=== PATIENT | female | born 1980 | race Caucasian/White ===

== ENCOUNTER 2016-11-20 14:25 | Emergency (ER) | payer MEDICAID ==
[2016-11-20] MEDS ORDERED: CIPROFLOXACIN 400 MG/200 ML 200 ML IV ONE ×2 (15:49→16:04)
[2016-11-20] MEDS ORDERED: metroNIDAZOLE 500 MG/100 ML 100 ML IV ONE (15:50)
[2016-11-20] MEDS ORDERED: ONDANSETRON 4 MG/2 ML VIAL IVP STA (15:50)
[2016-11-20] MEDS ORDERED: HYDROmorphone 1 MG/ML SYRINGE IM STA (15:50)
[2016-11-20] MEDS ORDERED: HYDROmorphone 1 MG/ML SYRINGE ONE ×2 (16:03→17:50)
[2016-11-20] MEDS ORDERED: ONDANSETRON 4 MG/2 ML VIAL ONE (16:03)
[2016-11-20] MEDS ORDERED: metroNIDAZOLE 500 MG/100 ML 100 ML ONE (16:04)
[2016-11-20] MEDS ORDERED: HYDROmorphone 1 MG/ML SYRINGE IVP STA (17:44)
== END 2016-11-20 18:04 | disposition home or self-care (01) ==
DX: K57.92 Diverticulitis of intestine, part unspecified, without perforation or abscess without bleeding (principal); J43.9 Emphysema, unspecified; F17.200 Nicotine dependence, unspecified, uncomplicated
CPT/HCPCS: 36415; 80053; 83690; 85025; 96365; 96368; 96372; 96375; 99283; 99284; J1170

== ENCOUNTER 2017-03-26 13:36 | Outpatient (CLI) | payer MEDICAID ==
--- NOTE | 2017-03-26 16:44 | XRAY Report ---
TWO-VIEW CHEST: 03/26/2017 CLINICAL INDICATION: Dyspnea on exertion. FINDINGS: Frontal and lateral views of the chest are compared to previous films of 11/20/2014. The cardiac silhouette is within normal limits. The lungs are clear. No effusion or pneumothorax is pre sent. IMPRESSION: NORMAL CHEST. JOB #: [id number] EXT JOB #:[id number]
== END 2017-03-26 13:37 | disposition home or self-care (01) ==
LOC: RT.S 13:36
PROVIDERS: ATTEND Nurse Practitioner Family
DX: R06.09 Other forms of dyspnea (principal); R07.89 Other chest pain
CPT/HCPCS: 71020; 93005

== ENCOUNTER 2017-05-20 12:36 | Emergency (ER) | payer MEDICAID ==
[2017-05-20 13:09] VITALS: BP 148/96
[2017-05-20] MEDS ORDERED: oxyCOD/ACETAMIN 5 MG/325 MG TABLET PO STA (13:28)
[2017-05-20] MEDS ORDERED: oxyCOD/ACETAMIN 5 MG/325 MG TABLET PO ONE (13:45)
--- NOTE | 2017-05-20 13:54 | XRAY Report ---
EXAM: LEFT FOOT RADIOGRAPHY EXAM DATE: 05/20/2017 01:23 PM. CLINICAL HISTORY: Left foot injury. COMPARISON: None. TECHNIQUE: 3 views. FINDINGS: Bones: Small plantar and Achilles heel spurs. Joints: Mild lateral deviation at the fifth metatarsal consistent with a tailor's bunion. Soft Tissues: Normal. No soft tissue swelling. IMPRESSION: 1. No evidence of fracture or dislocation. 2. Plantar and Achilles' heel spurs. [facility] Referring Provider Line: [phone] SITE ID: [id number]
--- NOTE | 2017-05-20 14:50 | ED Physician Documentation ---
PD HPI LOWER EXT INJURY - Stated complaint Stated Complaint: L ANKLE INJURY - Chief complaint Chief Complaint: Ext Problem - History obtained from History obtained from: Patient - History of Present Illness PD HPI LOW EXT INJURY LOCATION: Left, Foot Type of injury: Twist Where injury occurred: Home Timing - onset: Today Worsened by: Moving, Palpating, Other (Weightbearing.) Associated symptoms: Swelling. No: Weakness, Numbness - Additional information Additional information: The patient is a 36-year-old female who presents with left ankle pain. She was walking this morning when she "rolled" her left ankle. She felt it "pop." She denies any other injuries. She has had pain with weightbearing since the incident occurred. Review of Systems Constitutional: denies: Fever Nose: denies: Congestion Respiratory: denies: Dyspnea Musculoskeletal: reports: Extremity pain. 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 - Present Medications Home Medications: Ambulatory Orders Medication Instructions Recorded Confirmed oxyCODONE/ACET 5/325 [Percocet 5 1 - 2 tab PO Q4-6H PRN #20 tablet 11/20/1605/01 mg/325 mg] oxyCODONE/ACET 5/325 [Percocet 5 1 - 2 tab PO Q4-6H PRN #15 tablet 05/20/17 mg/325 mg] - Allergies Allergies/Adverse Reactions: Allergies Allergy/AdvReac Type Severity Reaction Status Date / Time codeine [Codeine] Allergy Mild Rash Verified 05/20/17 13:21 tape Allergy Mild Rash Uncoded 05/20/17 13:21 - Social History Does the pt smoke?: Yes Smoking Status: Current every day smoker Does the pt drink ETOH?: Yes Does the pt have substance abuse?: No - Immunizations Immunizations are current?: Yes - POLST Patient has POLST: No PD ED PE NORMAL - Vitals Vital signs reviewed: Yes (initially hypertensive) - General General: Alert and oriented X 3, Other (overweight) - HEENT HEENT: Atraumatic - Respiratory Respiratory: No respiratory distress - Back Back: No spinal TTP - Derm Derm: No rash - Extremities Extremities: No edema, Other (There is soft tissue swelling over the dorsolateral aspect of the left foot, with associated tenderness to palpation. There is also tenderness to palpation over the left mid calf. There is no defect detected in the Achilles tendon. She is able to flex and extend her foot against resistance. There is no tenderness to palpation over the medial malleolus, lateral malleolus, or fifth metatarsal base. Distal neurovascular is intact.) - Neuro Neuro: Alert and oriented X 3, No motor deficit, No sensory deficit Results - Vitals Vitals: Oxygen O2 Source Room air - Rads (name of study) Left Foot Radiology: Prelim report reviewed, EMP read contemporaneously, See rad report ( No fracture or dislocation. Plantar and Achilles heel spurs.) PD MEDICAL DECISION MAKING - ED course Complexity details: reviewed results, re-evaluated patient, considered differential, d/w patient ED course: The patient's presentation is significant for sprain of the left foot, as well as of the left gastrocnemius musculature. There is no fracture or dislocation noted on x-ray of the foot, and clinically I doubt Achilles tendon tear. Treatment in the emergency department included administration of Percocet 1 tablet orally. Crutches were dispensed. 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 She is discharged with a prescription for Percocet, 15 tablets. Departure - Departure Disposition: 01 Home, Self Care Clinical Impression: Sprain of left foot Qualifiers: Encounter type: initial encounter Qualified Code(s): S93.602A - Unspecified sprain of left foot, initial encounter Calf pain Qualifiers: Laterality: left Qualified Code(s): M79.662 - Pain in left lower leg Condition: Stable Instructions: ED Sprain Foot Follow-Up: Ginger Vaughn ARNP [Primary Care Provider] - Prescriptions: oxyCODONE/ACET 5/325 [Percocet 5 mg/325 mg] 1 - 2 tab PO Q4-6H PRN #15 tablet PRN Reason: Pain Comments: Keep your left leg elevated as much the time as possible. Apply ice pack intermittently for the next 3 days. You continues Percocet as prescribed if needed for pain. Use crutches to assist with ambulation. Let pain be your guide to activity level. Follow-up with your primary physician within 1-2 weeks. Call to schedule an appointment. Return to the emergency department if you develop markedly increasing pain or swelling, or otherwise worsening symptoms. Forms: Activity restrictions Discharge Date/Time: 05/20/17 15:05
== END 2017-05-20 15:05 | disposition home or self-care (01) ==
LOC: ED 12:36
DX: S93.602A Unspecified sprain of left foot, initial encounter (principal); M79.662 Pain in left lower leg; X50.1XXA Overexertion from prolonged static or awkward postures, initial encounter; Y93.01 Activity, walking, marching and hiking; Y92.009 Unspecified place in unspecified non-institutional (private) residence as the place of occurrence of the external cause; F17.200 Nicotine dependence, unspecified, uncomplicated
CPT/HCPCS: 73630; 99283; A9270

== ENCOUNTER 2017-08-11 15:06 | Outpatient (CLI) | payer MEDICAID | END 2017-08-11 15:07 | disposition critical access hospital (66) | LOC: EMS 15:06 | PROVIDERS: ATTEND Surgery | DX: R53.83 Other fatigue (principal); M79.89 Other specified soft tissue disorders; R53.1 Weakness; R06.02 Shortness of breath | CPT/HCPCS: A0425; A0427 ==

== ENCOUNTER 2017-08-11 15:44 | Emergency (ER) | payer MEDICAID ==
[2017-08-11] MEDS ORDERED: FUROSEMIDE 40 MG/4 ML VIAL IVP STA (16:27)
[2017-08-11] MEDS ORDERED: SODIUM CHLORIDE FLUSH 0.9% 10 ML SYRINGE IVP ONE ×3 (16:28→19:05)
--- NOTE | 2017-08-11 16:30 | ED Physician Documentation ---
History of Present Illness - Stated complaint Stated Complaint: LETHARGIC - Chief complaint Chief Complaint: General - History obtained from History obtained from: Patient - History of Present Illness Timing: Other (This is a 36-year-old woman with history of fatty liver, alcohol abuse, tobacco abuse,2 weeks worth of increasing pedal edema and abdominal edema with pain in both legs and increasing shortness of breath. No chest pain. She is urinating normally. No possibility of she says.) Review of Systems Ten Systems: 10 systems reviewed and negative Constitutional: denies: Fever, Chills Nose: denies: Rhinorrhea / runny nose, Congestion Respiratory: reports: Dyspnea, Cough GI: reports: Abdominal Swelling. 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 - Present Medications Home Medications: Ambulatory Orders Medication Instructions Recorded Confirmed Diazepam [Valium] 0.5 mg PO DAILY 08/11/17 08/11/17 Furosemide [Lasix] 20 mg PO DAILY #14 tablet 08/11/17 Hydrocodone/Acetaminophen [Vicodin 1 tab PO PRN PRN 08/11/17 08/11/17 Hp 10-300 mg Tablet] Potassium Chloride 10 meq PO DAILY #14 capsule.er 08/11/17 Zolpidem [Ambien] 0.5 mg PO DAILY 08/11/17 08/11/17 - Allergies Allergies/Adverse Reactions: Allergies Allergy/AdvReac Type Severity Reaction Status Date / Time codeine [Codeine] Allergy Mild Rash Verified 08/11/17 15:53 tape Allergy Mild Rash Uncoded 08/11/17 15:53 - Social History Does the pt smoke?: Yes Smoking Status: Current every day smoker Does the pt drink ETOH?: Yes Does the pt have substance abuse?: No - Family History Family history: reports: Non contributory - Immunizations Immunizations are current?: Yes - POLST Patient has POLST: No PD ED PE NORMAL - Vitals Vital signs reviewed: Yes - General General: Alert and oriented X 3, No acute distress - Neck Neck: Supple, no meningeal sign, No bony TTP - Cardiac Cardiac: RRR, No murmur - Respiratory Respiratory: Other (Distant diminished breath sounds due to body habitus) - Abdomen Abdomen: Non tender, Other (Potentially with some fluid overload, hard to say due to body habitus.) - Back Back: No CVA TTP, No spinal TTP - Derm Derm: Normal color, Warm and dry - Extremities Extremities: Other (4+ pitting pedal edema, symmetric) - Neuro Neuro: Alert and oriented X 3, Normal speech - Psych Psych: Normal mood, Normal affect Results - Vitals Vitals: Vital Signs - 24 hr 08/11/17 08/11/17 08/11/17 15:50 16:30 19:24 Temperature 36.8 C 36.8 C Heart Rate 111 H 98 103 H Respiratory 18 18 12 Rate Blood Pressure 129/70 137/67 H 123/78 O2 Saturation 90 L 91 L 96 Oxygen O2 Source Room air - Labs Labs: Laboratory Tests 08/11/17 08/11/17 08/11/17 16:36 16:36 16:36 WBC 8.8 RBC 3.59 L Hgb 13.6 Hct 39.6 MCV 110.1 H MCH 37.8 H MCHC 34.3 RDW 17.2 H Plt Count 105 L MPV 8.7 Neut # 6.2 Lymph # 1.4 L [place] # 0.6 Eos # 0.4 Baso # 0.1 Absolute Nucleated RBC 0.00 Nucleated RBC % 0.0 Manual Slide Review Indicated Platelet Estimate DECREASED (<130,000) Platelet Morphology NORMAL APPEARANCE RBC Morph Micro Appear NORMAL APPEARANCE PT 16.7 H INR 1.5 H Sodium 135 Potassium 3.5 Chloride 95 L Carbon Dioxide 31 Anion Gap 9.0 BUN 10 Creatinine 0.6 Estimated GFR (MDRD) 112 Glucose 130 H Calcium 8.6 Total Bilirubin 4.6 H AST 125 H ALT 32 Alkaline Phosphatase 171 H Total Protein 8.6 H Albumin 2.9 L Globulin 5.7 H Albumin/Globulin Ratio 0.5 L Lipase 55 H Urine Color Urine Clarity Urine pH Ur Specific [place] Urine Protein Urine Glucose (UA) Urine Ketones Urine Occult Blood Urine Nitrite Urine Bilirubin Urine Urobilinogen Ur Leukocyte Esterase Urine RBC Urine WBC Ur Squamous Epith Cells Urine Bacteria Ur Microscopic Review Urine Culture Comments Urine HCG, Qual Ethyl Alcohol < 5.0 08/11/17 17:39 WBC RBC Hgb Hct MCV MCH MCHC RDW Plt Count MPV Neut # Lymph # [place] # Eos # Baso # Absolute Nucleated RBC Nucleated RBC % Manual Slide Review Platelet Estimate Platelet Morphology RBC Morph Micro Appear PT INR Sodium Potassium Chloride Carbon Dioxide Anion Gap BUN Creatinine Estimated GFR (MDRD) Glucose Calcium Total Bilirubin AST ALT Alkaline Phosphatase Total Protein Albumin Globulin Albumin/Globulin Ratio Lipase Urine Color DK. ORANGE Urine Clarity SL. CLOUDY Urine pH 7.0 Ur Specific [place] 1.010 Urine Protein NEGATIVE Urine Glucose (UA) NEGATIVE Urine Ketones NEGATIVE Urine Occult Blood LARGE H Urine Nitrite NEGATIVE Urine Bilirubin SMALL H Urine Urobilinogen >=8.0 H Ur Leukocyte Esterase NEGATIVE Urine RBC TNTC H Urine WBC 0-3 Ur Squamous Epith Cells FEW Squamous Urine Bacteria Few Ur Microscopic Review INDICATED Urine Culture Comments NOT INDICATED Urine HCG, Qual NEGATIVE Ethyl Alcohol - Rads (name of study) Abdominal ultrasound Radiology: EMP read contemporaneously (Hepatomegaly with steatosis) 2 view chest 2 view chest Radiology: EMP read contemporaneously (Cardiomegaly) PD MEDICAL DECISION MAKING - ED course ED course: This is a 36-year-old woman who is morbidly obese and presents with anasarca which is likely related to alcoholic hepatitis. She has been recently tested for viral hepatitis and it was negative. Over time her bilirubin has been rising and she is slightly coagulopathic here. She was administered Lasix IV with good urine output. She will be given a prescription for this as well as potassium primary care follow-up was encouraged. She knows she needs to quit drinking. Departure - Departure Disposition: 01 Home, Self Care Clinical Impression: Anasarca Alcoholic cirrhosis of liver Qualifiers: Ascites presence: with ascites Qualified Code(s): K70.31 - Alcoholic cirrhosis of liver with ascites Condition: Good Record reviewed to determine appropriate education?: Yes Instructions: Cirrhosis Liver Dc, ED Alcohol Abuse Prescriptions: Furosemide [Lasix] 20 mg PO DAILY #14 tablet Potassium Chloride 10 meq PO DAILY #14 capsule.er Comments: Call your doctor to arrange a follow-up appointment, make the next available appointment. In the interim, return anytime if worse or if new symptoms develop.
[2017-08-11 16:46] LABS: BASOPHILS # (AUTO) 0.1 10^3/uL (0.0-0.1); BASOPHILS % (AUTO) 1.2 %; EOSINOPHILS # (AUTO) 0.4 10^3/uL (0.0-0.7); EOSINOPHILS % (AUTO) 4.1 %; HCT - HEMATOCRIT 39.6 % (37.0-47.0); HGB - HEMOGLOBIN 13.6 g/dL (12.0-16.0); LYMPHOCYTES # (AUTO) 1.4 10^3/uL (1.5-3.5); LYMPHOCYTES % (AUTO) 16.5 %; MEAN CORPUSCULAR HEMOGLOBIN 37.8 pg (27.0-31.0); MEAN CORPUSCULAR HGB CONC 34.3 g/dL (32.0-36.0); MEAN CORPUSCULAR VOLUME 110.1 fL (81.0-99.0); MEAN PLATELET VOLUME 8.7 fL (7.9-10.8); MONOCYTES # (AUTO) 0.6 10^3/uL (0.0-1.0); MONOCYTES % (AUTO) 7.2 %; NEUTROPHILS # (AUTO) 6.2 10^3/uL (1.5-6.6); RED BLOOD COUNT 3.59 10^6/uL (4.20-5.40); RED CELL DISTRIBUTION WIDTH 17.2 % (12.0-15.0); UNCORRECTED WHITE BLOOD COUNT 8.8 x10^3/uL; WHITE BLOOD COUNT 8.8 x10^3/uL (4.8-10.8)
[2017-08-11 16:47] LABS: INR 1.5 (0.8-1.2); PT - PROTHROMBIN TIME 16.7 secs (9.9-12.6)
[2017-08-11 16:55] LABS: ALBUMIN/GLOBULIN RATIO 0.5 (1.0-2.2); BILIRUBIN,TOTAL 4.6 mg/dL (0.2-1.0); BUN - BLOOD UREA NITROGEN 10 mg/dL (6-20); CALCIUM 8.6 mg/dL (8.5-10.3); CARBON DIOXIDE - CO2 31 mmol/L (21-32); CHLORIDE 95 mmol/L (101-111); CREATININE 0.6 mg/dL (0.4-1.0); GFR - MDRD 112 (>89); GLUCOSE 130 mg/dL (70-100); LIPASE 55 U/L (22-51); POTASSIUM 3.5 mmol/L (3.5-5.0); SODIUM 135 mmol/L (135-145); TOTAL PROTEIN 8.6 g/dL (6.7-8.2)
[2017-08-11 17:02] LABS: PLATELET ESTIMATE, MANUAL DECREASED (<130,000) (NORMAL); PLATELET MORPHOLOGY NORMAL APPEARANCE (NORMAL)
[2017-08-11] MEDS ORDERED: FUROSEMIDE 40 MG/4 ML VIAL ONE (17:20)
--- NOTE | 2017-08-11 17:41 | XRAY Preliminary Report ---
Exam: XR Chest 2 View PA/LAT IMPRESSION: Moderate cardiomegaly. No definite acute disease. [facility] SITE ID: [id number]
--- NOTE | 2017-08-11 17:44 | XRAY Report ---
EXAM: CHEST RADIOGRAPHY EXAM DATE: 08/11/2017 04:58 PM. CLINICAL HISTORY: Dyspnea, anasarca. COMPARISON: 11/20/2014. TECHNIQUE: 2 views. FINDINGS: Lungs/Pleura: No definite localized infiltrate, consolidation, effusion, or pneumothorax. Mediastinum: Moderate cardiomegaly, increased since previous study. Upper lobe vessels not distended. Other: None. IMPRESSION: Moderate cardiomegaly. No definite acute disease. [facility] Referring Provider Line: [phone] SITE ID: [id number]
[2017-08-11 18:16] LABS: BILIRUBIN,URINE SMALL (NEGATIVE)
[2017-08-11 18:17] LABS: HCG UR QUAL NEGATIVE; UA w/ MICROSCOPIC CHARGE YES
[2017-08-11] MEDS ORDERED: HYDROmorphone 1 MG/ML CARPUJECT IVP STA (18:25)
[2017-08-11 18:48] LABS: UR CULTURE IF IND NOT INDICATED; WBC,URINE 0-3 /HPF (0-5)
[2017-08-11] MEDS ORDERED: HYDROmorphone 1 MG/ML CARPUJECT ONE (19:05)
[2017-08-11 19:25] VITALS: BP 123/78
--- NOTE | 2017-08-11 19:34 | Ultrasound Preliminary Report ---
Exam: US Abdomen Limited IMPRESSION: 1. Hepatomegaly with steatosis of the liver. 2. Postcholecystectomy. [facility] SITE ID: [id number]
--- NOTE | 2017-08-11 19:37 | Ultrasound Report ---
EXAM: ABDOMEN ULTRASOUND LIMITED, RUQ EXAM DATE: 08/11/2017 07:10 PM. CLINICAL HISTORY: Liver failure. COMPARISON: CT 12/14/2014. TECHNIQUE: Real-time scanning was performed with static images obtained. FINDINGS: Liver: The liver parenchyma is coarse and diffusely echogenic. The liver is not well seen due to body habitus and liver echogenicity. 28.4 cm. Main portal vein flow: Hepatopetal. Gallbladder: Surgically absent. Biliary System: CBD measures 7.4 mm. Other: Right kidney measures 13.1 cm in length without hydronephrosis. IMPRESSION: 1. Hepatomegaly with steatosis of the liver. 2. Postcholecystectomy. [facility] Referring Provider Line: [phone] SITE ID: [id number]
== END 2017-08-11 20:10 | disposition home or self-care (01) ==
LOC: ED 15:44
DX: K70.31 Alcoholic cirrhosis of liver with ascites (principal); R60.1 Generalized edema; J44.9 Chronic obstructive pulmonary disease, unspecified; Z87.19 Personal history of other diseases of the digestive system; F17.200 Nicotine dependence, unspecified, uncomplicated
CPT/HCPCS: 36415; 71020; 76705; 80053; 80320; 81001; 81025; 83690; 85025; 85610; 96374; 96375; 99283; 99284; J1170; 81003; 87086

== ENCOUNTER 2017-08-27 10:01 | Outpatient (CLI) | payer MEDICAID ==
[2017-08-27] MEDS ORDERED: ALBUTEROL NEB 2.5 MG/3 ML INH ONE (15:23)
[2017-08-27] MEDS ORDERED: SODIUM CHLORIDE FLUSH 0.9% 10 ML SYRINGE IVP ONE (15:24)
[2017-08-27] MEDS ORDERED: KETOROLAC 15 MG/ML VIAL ONE (15:41)
== END 2017-08-27 10:02 | disposition critical access hospital (66) ==
LOC: EMS 10:01
PROVIDERS: ATTEND Surgery
DX: N93.0 Postcoital and contact bleeding (principal); R42 Dizziness and giddiness; R06.02 Shortness of breath

== ENCOUNTER 2017-08-29 17:09 | Outpatient (CLI) | payer MEDICAID | END 2017-08-29 17:10 | disposition short-term general hospital (02) | LOC: EMS 17:09 | PROVIDERS: ATTEND Surgery | DX: N93.9 Abnormal uterine and vaginal bleeding, unspecified (principal); M54.5 Low back pain; M25.551 Pain in right hip; M25.552 Pain in left hip | CPT/HCPCS: A0170; A0425; A0426 ==

== ENCOUNTER 2017-09-13 11:37 | Outpatient (CLI) | payer MEDICAID ==
[2017-09-13 17:51] LABS: BASOPHILS # (AUTO) 0.1 10^3/uL (0.0-0.1); BASOPHILS % (AUTO) 1.1 %; EOSINOPHILS # (AUTO) 0.4 10^3/uL (0.0-0.7); EOSINOPHILS % (AUTO) 3.6 %; HCT - HEMATOCRIT 27.6 % (37.0-47.0); HGB - HEMOGLOBIN 8.8 g/dL (12.0-16.0); LYMPHOCYTES # (AUTO) 1.9 10^3/uL (1.5-3.5); LYMPHOCYTES % (AUTO) 16.9 %; MEAN CORPUSCULAR HEMOGLOBIN 33.7 pg (27.0-31.0); MEAN CORPUSCULAR HGB CONC 31.7 g/dL (32.0-36.0); MEAN CORPUSCULAR VOLUME 106.4 fL (81.0-99.0); MEAN PLATELET VOLUME 8.8 fL (7.9-10.8); MONOCYTES # (AUTO) 0.9 10^3/uL (0.0-1.0); MONOCYTES % (AUTO) 7.8 %; NEUTROPHILS % (AUTO) 70.6 %; RED CELL DISTRIBUTION WIDTH 20.1 % (12.0-15.0); UNCORRECTED WHITE BLOOD COUNT 11.3 x10^3/uL; WHITE BLOOD COUNT 11.3 x10^3/uL (4.8-10.8)
[2017-09-13 18:35] LABS: ALBUMIN/GLOBULIN RATIO 0.6 (1.0-2.2); BILIRUBIN,TOTAL 1.5 mg/dL (0.2-1.0); CALCIUM 8.4 mg/dL (8.5-10.3); CREATININE 0.7 mg/dL (0.4-1.0); POTASSIUM 3.7 mmol/L (3.5-5.0); TOTAL PROTEIN 7.5 g/dL (6.7-8.2)
[2017-09-13 19:08] LABS: PLATELET ESTIMATE, MANUAL NORMAL (130-450,000) (NORMAL); PLATELET MORPHOLOGY NORMAL APPEARANCE (NORMAL)
== END 2017-09-13 11:38 | disposition home or self-care (01) ==
LOC: LAB.S 11:37
PROVIDERS: ATTEND Nurse Practitioner Family
DX: K70.30 Alcoholic cirrhosis of liver without ascites (principal); D60.0 Chronic acquired pure red cell aplasia; D69.6 Thrombocytopenia, unspecified
CPT/HCPCS: 36415; 80053; 85025

== ENCOUNTER 2017-09-27 14:39 | Outpatient (CLI) | payer MEDICAID ==
[2017-09-27 18:04] LABS: HCT - HEMATOCRIT 30.4 % (37.0-47.0); HGB - HEMOGLOBIN 9.9 g/dL (12.0-16.0); MEAN CORPUSCULAR HEMOGLOBIN 32.5 pg (27.0-31.0); MEAN CORPUSCULAR HGB CONC 32.7 g/dL (32.0-36.0); MEAN CORPUSCULAR VOLUME 99.5 fL (81.0-99.0); MEAN PLATELET VOLUME 8.6 fL (7.9-10.8); RED BLOOD COUNT 3.05 10^6/uL (4.20-5.40); RED CELL DISTRIBUTION WIDTH 19.5 % (12.0-15.0); WHITE BLOOD COUNT 10.5 x10^3/uL (4.8-10.8)
[2017-09-27 18:31] LABS: ALBUMIN/GLOBULIN RATIO 0.5 (1.0-2.2); BILIRUBIN,TOTAL 1.9 mg/dL (0.2-1.0); CALCIUM 8.7 mg/dL (8.5-10.3); CREATININE 0.9 mg/dL (0.4-1.0); POTASSIUM 3.6 mmol/L (3.5-5.0); TOTAL PROTEIN 8.4 g/dL (6.7-8.2)
== END 2017-09-27 14:40 | disposition home or self-care (01) ==
LOC: LAB.S 14:39
PROVIDERS: ATTEND Nurse Practitioner Family
DX: K70.31 Alcoholic cirrhosis of liver with ascites (principal); K70.30 Alcoholic cirrhosis of liver without ascites
CPT/HCPCS: 36415; 80053; 85025

== ENCOUNTER 2017-10-07 17:42 | Outpatient (CLI) | payer MEDICAID | END 2017-10-07 17:43 | disposition critical access hospital (66) | LOC: EMS 17:42 | PROVIDERS: ATTEND Surgery | DX: R06.02 Shortness of breath (principal) | CPT/HCPCS: A0425; A0427 ==

== ENCOUNTER 2017-10-07 18:15 | Emergency (ER) | payer MEDICAID ==
--- NOTE | 2017-10-07 18:29 | ED Physician Documentation ---
PD HPI DYSPNEA - Stated complaint Stated Complaint: Dyspnea - Chief complaint Chief Complaint: Resp - History obtained from History obtained from: Patient, EMS - History of Present Illness Timing - onset: Other (This is a morbidly obese 36-year-old woman with alcoholic cirrhosis, COPD. She was recently hospitalized for vaginal bleeding. She presents with 2 day history of shortness of breath with a productive cough , history is limited because of somnolence.) Review of Systems Unable to obtain: AMS PD PAST MEDICAL HISTORY - Past Medical History Past Medical History: Yes Cardiovascular: None Respiratory: COPD, Emphysema, Pneumonia, Other Neuro: None Endocrine/Autoimmune: None GI: Diverticulitis : None HEENT: None Psych: None Musculoskeletal: None Derm: None - Past Surgical History Past Surgical History: Yes General: Cholecystectomy, Colonoscopy /THERAPY DIRECTOR: section - Present Medications Home Medications: Ambulatory Orders Medication Instructions Recorded Confirmed Diazepam [Valium] 0.5 mg PO DAILY 08/11/17 08/27/17 Furosemide [Lasix] 20 mg PO DAILY #14 tablet 08/11/17 08/27/17 Hydrocodone/Acetaminophen [Vicodin 1 tab PO PRN PRN 08/11/17 08/27/17 Hp 10-300 mg Tablet] Potassium Chloride 10 meq PO DAILY #14 capsule.er 08/11/17 08/27/17 Zolpidem [Ambien] 0.5 mg PO DAILY 08/11/17 08/27/17 - Allergies Allergies/Adverse Reactions: Allergies Allergy/AdvReac Type Severity Reaction Status Date / Time codeine [Codeine] Allergy Mild Rash Verified 10/07/17 18:20 tape Allergy Mild Rash Uncoded 10/07/17 18:20 - Social History Does the pt smoke?: Yes Smoking Status: Current every day smoker Does the pt drink ETOH?: Yes Does the pt have substance abuse?: No - Immunizations Immunizations are current?: Yes - POLST Patient has POLST: No PD ED PE NORMAL - Vitals Vital signs reviewed: Yes (Saturations rapidly drop when taken off of oxygen, at best getting 92% NRB) - General General: Other (She is somnolent, slow to answer questions, she is cooperative though. She is morbidly obese. Labored, can only speak in short sentences.) - HEENT HEENT: PERRL, EOMI - Neck Neck: Supple, no meningeal sign, No bony TTP - Cardiac Cardiac: RRR, No murmur - Respiratory Respiratory: Other (Distant breath sounds, rhonchorous throughout) - Abdomen Abdomen: Soft, Non tender - Extremities Extremities: Other (Brawny edema of the legs and lower abdominal wall) - Neuro Neuro: Alert and oriented X 3, Normal speech Eye Opening: To Voice Motor: Obeys Commands Verbal: Oriented GCS Score: 14 - Psych Psych: Normal mood, Normal affect Results - Vitals Vitals: Vital Signs - 24 hr 10/07/17 10/07/17 10/07/17 18:16 18:30 18:45 Temperature 36.9 C Heart Rate 118 H 114 H 110 H Respiratory 20 Rate Blood Pressure 133/56 H 114/51 L 139/68 H O2 Saturation 85 L 10/07/17 10/07/17 10/07/17 19:00 19:07 19:11 Temperature Heart Rate 110 H 111 H 109 H Respiratory 20 20 Rate Blood Pressure 120/56 L 104/57 L O2 Saturation 91 L 89 L 10/07/17 10/07/17 10/07/17 19:59 20:03 20:10 Temperature Heart Rate 98 95 95 Respiratory 24 24 24 Rate Blood Pressure 74/20 L 78/27 L 75/37 L O2 Saturation 95 95 10/07/17 10/07/17 10/07/17 20:14 20:36 21:04 Temperature Heart Rate 96 104 H 107 H Respiratory 24 22 13 Rate Blood Pressure 85/39 L 96/56 L 109/65 O2 Saturation 94 22 L 77 L Oxygen O2 Source Mechanical ventilator - EKG (time done) 1823 Rate: Rate (enter#) (119) Rhythm: Sinus tachycardia Nada: Normal Intervals: Normal AL QRS: Normal Ischemia: Normal ST segments Computer interpretation: Agree with computer - Labs Labs: Laboratory Tests 10/07/17 10/07/17 10/07/17 18:15 18:15 18:15 WBC 29.0 H RBC 3.29 L Hgb 10.5 L Hct 35.1 L MCV 106.5 H MCH 31.9 H MCHC 30.0 L RDW 20.6 H Plt Count 226 MPV 8.9 Neut # Not Reportable Lymph # Not Reportable Alcorn # Not Reportable Eos # Not Reportable Baso # Not Reportable Absolute Nucleated RBC Not Reportable Total Counted 100 Band Neuts % (Manual) 39 H Metamyelocytes % 1 H Nucleated RBC % Not Reportable Neutrophils # (Manual) 25.5 H Lymphocytes # (Manual) 1.7 Monocytes # (Manual) 1.2 H Eosinophils # (Manual) 0.3 Nucleated RBCs 1 Differential Comment MANUAL DIFFERENTIAL Platelet Estimate NORMAL (130-450,000) Platelet Morphology 1+ GIANT PLATELETS RBC Morph Micro Appear 1+ POLYCHROMASIA PT 20.5 H INR 1.9 H APTT 38.5 H Bld Gas Analysis Time Sample Site ABG pH ABG pCO2 ABG pO2 ABG HCO3 ABG Total CO2 ABG O2 Saturation ABG Base Excess Jimy Test VBG pH VBG pCO2 VBG pO2 VBG HCO3 VBG Total CO2 VBG O2 Saturation VBG Base Excess Respiration Rate O2 Delivery Device Vent Mode FiO2 Tidal Volume PEEP Pressure Support Vent Sodium 134 L Potassium 4.2 Chloride 96 L Carbon Dioxide 19 L Anion Gap 19.0 H BUN 15 Creatinine 1.8 H Estimated GFR (MDRD) 31 L Glucose 126 H Lactic Acid Calcium 8.5 Magnesium 1.7 Total Bilirubin 3.6 H AST 65 H ALT 19 Alkaline Phosphatase 69 Total Creatine Kinase 132 CK-MB (CK-2) Troponin I B-Natriuretic Peptide Total Protein 8.4 H Albumin 2.8 L Globulin 5.6 H Albumin/Globulin Ratio 0.5 L Lipase 22 Urine Color Urine Clarity Urine pH Ur Specific [place] Urine Protein Urine Glucose (UA) Urine Ketones Urine Occult Blood Urine Nitrite Urine Bilirubin Urine Urobilinogen Ur Leukocyte Esterase Urine RBC Urine WBC Ur Squamous Epith Cells Urine Crystals Amorphous Sediment Urine Bacteria Ur Microscopic Review Urine Culture Comments Urine HCG, Qual Urine Opiates Screen Ur Oxycodone Screen Urine Methadone Screen Ur Propoxyphene Screen Ur Barbiturates Screen Ur Tricyclics Screen Ur Phencyclidine Scrn Ur Amphetamine Screen U Methamphetamines Scrn U Benzodiazepines Scrn Urine Cocaine Screen U Cannabinoids Screen Ethyl Alcohol < 5.0 Influenza A (Rapid) Influenza B (Rapid) Influenza Types A,B Ag 10/07/17 10/07/17 10/07/17 18:15 18:15 18:15 WBC RBC Hgb Hct MCV MCH MCHC RDW Plt Count MPV Neut # Lymph # [place] # Eos # Baso # Absolute Nucleated RBC Total Counted Band Neuts % (Manual) Metamyelocytes % Nucleated RBC % Neutrophils # (Manual) Lymphocytes # (Manual) Monocytes # (Manual) Eosinophils # (Manual) Nucleated RBCs Differential Comment Platelet Estimate Platelet Morphology RBC Morph Micro Appear PT INR APTT Bld Gas Analysis Time Sample Site ABG pH ABG pCO2 ABG pO2 ABG HCO3 ABG Total CO2 ABG O2 Saturation ABG Base Excess Jimy Test VBG pH VBG pCO2 VBG pO2 VBG HCO3 VBG Total CO2 VBG O2 Saturation VBG Base Excess Respiration Rate O2 Delivery Device Vent Mode FiO2 Tidal Volume PEEP Pressure Support Vent Sodium Potassium Chloride Carbon Dioxide Anion Gap BUN Creatinine Estimated GFR (MDRD) Glucose Lactic Acid 10.0 H* Calcium Magnesium Total Bilirubin AST ALT Alkaline Phosphatase Total Creatine Kinase CK-MB (CK-2) 4.6 Troponin I < 0.04 B-Natriuretic Peptide 378 H Total Protein Albumin Globulin Albumin/Globulin Ratio Lipase Urine Color Urine Clarity Urine pH Ur Specific [place] Urine Protein Urine Glucose (UA) Urine Ketones Urine Occult Blood Urine Nitrite Urine Bilirubin Urine Urobilinogen Ur Leukocyte Esterase Urine RBC Urine WBC Ur Squamous Epith Cells Urine Crystals Amorphous Sediment Urine Bacteria Ur Microscopic Review Urine Culture Comments Urine HCG, Qual Urine Opiates Screen Ur Oxycodone Screen Urine Methadone Screen Ur Propoxyphene Screen Ur Barbiturates Screen Ur Tricyclics Screen Ur Phencyclidine Scrn Ur Amphetamine Screen U Methamphetamines Scrn U Benzodiazepines Scrn Urine Cocaine Screen U Cannabinoids Screen Ethyl Alcohol Influenza A (Rapid) Influenza B (Rapid) Influenza Types A,B Ag 10/07/17 10/07/17 10/07/17 19:21 19:22 19:40 WBC RBC Hgb Hct MCV MCH MCHC RDW Plt Count MPV Neut # Lymph # [place] # Eos # Baso # Absolute Nucleated RBC Total Counted Band Neuts % (Manual) Metamyelocytes % Nucleated RBC % Neutrophils # (Manual) Lymphocytes # (Manual) Monocytes # (Manual) Eosinophils # (Manual) Nucleated RBCs Differential Comment Platelet Estimate Platelet Morphology RBC Morph Micro Appear PT INR APTT Bld Gas Analysis Time 1927 Sample Site RIGHT RADIAL ABG pH 7.10 L* ABG pCO2 55 H ABG pO2 66 L ABG HCO3 16.8 L ABG Total CO2 18.4 L ABG O2 Saturation 87 L* ABG Base Excess -12.8 L Jimy Test NOT APPLICABLE VBG pH VBG pCO2 VBG pO2 VBG HCO3 VBG Total CO2 VBG O2 Saturation VBG Base Excess Respiration Rate 20 O2 Delivery Device VENTILATOR Vent Mode SIMV FiO2 100.00 Tidal Volume 550 PEEP 12 Pressure Support Vent 10 Sodium Potassium Chloride Carbon Dioxide Anion Gap BUN Creatinine Estimated GFR (MDRD) Glucose Lactic Acid Calcium Magnesium Total Bilirubin AST ALT Alkaline Phosphatase Total Creatine Kinase CK-MB (CK-2) Troponin I B-Natriuretic Peptide Total Protein Albumin Globulin Albumin/Globulin Ratio Lipase Urine Color Urine Clarity Urine pH Ur Specific [place] Urine Protein Urine Glucose (UA) Urine Ketones Urine Occult Blood Urine Nitrite Urine Bilirubin Urine Urobilinogen Ur Leukocyte Esterase Urine RBC Urine WBC Ur Squamous Epith Cells Urine Crystals Amorphous Sediment Urine Bacteria Ur Microscopic Review Urine Culture Comments Urine HCG, Qual Urine Opiates Screen POSITIVE H Ur Oxycodone Screen NEGATIVE Urine Methadone Screen NEGATIVE Ur Propoxyphene Screen NEGATIVE Ur Barbiturates Screen NEGATIVE Ur Tricyclics Screen NEGATIVE Ur Phencyclidine Scrn NEGATIVE Ur Amphetamine Screen NEGATIVE U Methamphetamines Scrn NEGATIVE U Benzodiazepines Scrn POSITIVE H Urine Cocaine Screen NEGATIVE U Cannabinoids Screen POSITIVE H Ethyl Alcohol Influenza A (Rapid) Negative Influenza B (Rapid) Negative Influenza Types A,B Ag - 10/07/17 10/07/17 10/07/17 19:40 21:20 21:20 WBC RBC Hgb Hct MCV MCH MCHC RDW Plt Count MPV Neut # Lymph # [place] # Eos # Baso # Absolute Nucleated RBC Total Counted Band Neuts % (Manual) Metamyelocytes % Nucleated RBC % Neutrophils # (Manual) Lymphocytes # (Manual) Monocytes # (Manual) Eosinophils # (Manual) Nucleated RBCs Differential Comment Platelet Estimate Platelet Morphology RBC Morph Micro Appear PT INR APTT Bld Gas Analysis Time Sample Site ABG pH ABG pCO2 ABG pO2 ABG HCO3 ABG Total CO2 ABG O2 Saturation ABG Base Excess Jimy Test VBG pH 6.963 L VBG pCO2 80.3 H VBG pO2 59.2 H VBG HCO3 17.8 L VBG Total CO2 20.2 L VBG O2 Saturation 78.8 VBG Base Excess -14.7 L Respiration Rate O2 Delivery Device Vent Mode FiO2 Tidal Volume PEEP Pressure Support Vent Sodium Potassium Chloride Carbon Dioxide Anion Gap BUN Creatinine Estimated GFR (MDRD) Glucose Lactic Acid 9.4 H* Calcium Magnesium Total Bilirubin AST ALT Alkaline Phosphatase Total Creatine Kinase CK-MB (CK-2) Troponin I B-Natriuretic Peptide Total Protein Albumin Globulin Albumin/Globulin Ratio Lipase Urine Color YELLOW Urine Clarity CLOUDY Urine pH 5.5 Ur Specific [place] >=1.030 H Urine Protein 30 H Urine Glucose (UA) NEGATIVE Urine Ketones TRACE Urine Occult Blood TRACE-INTA Urine Nitrite NEGATIVE Urine Bilirubin SMALL H Urine Urobilinogen 0.2 (NORMAL) Ur Leukocyte Esterase NEGATIVE Urine RBC 0-5 Urine WBC 4-5 Ur Squamous Epith Cells FEW Squamous Urine Crystals 3-5 Calcium Oxalate Amorphous Sediment Marked Urine Bacteria Few Ur Microscopic Review INDICATED Urine Culture Comments NOT INDICATED Urine HCG, Qual NEGATIVE Urine Opiates Screen Ur Oxycodone Screen Urine Methadone Screen Ur Propoxyphene Screen Ur Barbiturates Screen Ur Tricyclics Screen Ur Phencyclidine Scrn Ur Amphetamine Screen U Methamphetamines Scrn U Benzodiazepines Scrn Urine Cocaine Screen U Cannabinoids Screen Ethyl Alcohol Influenza A (Rapid) Influenza B (Rapid) Influenza Types A,B Ag Procedures - Intubation Provider: Emergency physician Medications: Ketamine (200mg) Blade: Sameera (4) Tube: Size-enter number (8), Cuffed Route: Oral Confirmation: Direct visualization, Bilateral breath sounds, No abdominal breath sound, End tidal CO2, Pulse ox Complications: No compications - Central Line Central Line Preparation: Time out completed, Ultrasound used, Sterile prep and drape. No: Consent Obtained (emergent) Central line location: Right IJ Central line type: Triple lumen (7F) Central line aftercare: Chlorhexidine disc placed, Secured, Placement confirmed , No pneumothorax, No complications, Bundle checklist complete, Pt tolerated well PD MEDICAL DECISION MAKING - ED course ED course: She presents critically ill with respiratory compromise, examination is difficult because of morbid obesity/body habitus. She was placed on BiPAP, with borderline saturations. This was followed by intubation which was technically easy and a central line on the right IJ because of profound lactic acidosis. X-ray demonstrates significant right-sided pneumonia. She was administered 4 L of IV crystalloid (2 of Plasma-Lyte 1, 1 of LR, 1 of saline.) Zosyn, Levaquin, vancomycin for hospital-acquired pneumonia. The IJ line was initially quite deep on x-ray, it was pulled back about 4 5 cm, post that repeat x-ray showed it now at the cavoatrial junction. She developed hypotension and was started on levo fed. She was accepted by Dr. Varghese, to the [facility] ICU at 8:16 PM. Prior to that I had spoken with Dr. Benito here about potential admission but given her young age and need for a multispecialty input we agreed that she should probably be transferred to a tertiary Medical Center. She was too big for [email or web address] to fly her and we called the [place] search and rescue but they were unable to fly her as well tonight so she will have to be transported by ground. Her sister arrived, Jyoti Tidwell, she would be LNOK As the patient's children are minors and her parents have and she is not . She was counseled as to the seriousness of the diagnosis and potential that this may be a mortal event. Unfortunately despite aggressive IV crystalloids, vasopressors etc. her lactate did not drop significantly on repeat check and her pH went down to 6.9. The sister was updated as to the gravity of this in regards to her prognosis. - Critical Care Time(min): 105 Time Includes: Direct patient care, Review records, Reassess patient, Document care, Coordinate care, Medical consult, Family consult for tx dec Data interpretation: Labs, Pulse ox Procedures included in critical care time: Peripheral IV Procedures excluded from critical care time: Central IV, Intubation, EKG Departure - Departure Disposition: 02 Transfer Acute Care Hosp Clinical Impression: Septic shock Respiratory failure Qualifiers: Chronicity: acute on chronic Respiratory failure complication: hypoxia and hypercapnia Qualified Code(s): J96.21 - Acute and chronic respiratory failure with hypoxia Pneumonia Qualifiers: Pneumonia type: due to unspecified organism Laterality: right Lung location: unspecified part of lung Qualified Code(s): J18.9 - Pneumonia, unspecified organism Dyspnea Qualifiers: Dyspnea type: unspecified Qualified Code(s): R06.00 - Dyspnea, unspecified Alcoholic cirrhosis of liver Qualifiers: Ascites presence: without ascites Qualified Code(s): K70.30 - Alcoholic cirrhosis of liver without ascites Condition: Critical
[2017-10-07] MEDS ORDERED: KETAMINE 500 MG/10 ML VIAL ONE (18:42)
[2017-10-07 18:43] LABS: INR 1.9 (0.8-1.2); PT - PROTHROMBIN TIME 20.5 secs (9.9-12.6)
[2017-10-07] MEDS ORDERED: SUCCINYLCHOLINE 200 MG/10 ML VIAL ONE (18:44)
[2017-10-07 18:45] LABS: ALBUMIN/GLOBULIN RATIO 0.5 (1.0-2.2); BASOPHILS % (AUTO) 0.9 %; BILIRUBIN,TOTAL 3.6 mg/dL (0.2-1.0); BUN - BLOOD UREA NITROGEN 15 mg/dL (6-20); CALCIUM 8.5 mg/dL (8.5-10.3); CARBON DIOXIDE - CO2 19 mmol/L (21-32); CHLORIDE 96 mmol/L (101-111); CREATININE 1.8 mg/dL (0.4-1.0); EOSINOPHILS % (AUTO) 0.3 %; GFR - MDRD 31 (>89); GLUCOSE 126 mg/dL (70-100); HCT - HEMATOCRIT 35.1 % (37.0-47.0); HGB - HEMOGLOBIN 10.5 g/dL (12.0-16.0); LIPASE 22 U/L (22-51); LYMPHOCYTES % (AUTO) 5.7 %; MAGNESIUM 1.7 mg/dL (1.7-2.8); MEAN CORPUSCULAR HEMOGLOBIN 31.9 pg (27.0-31.0); MEAN CORPUSCULAR VOLUME 106.5 fL (81.0-99.0); MEAN PLATELET VOLUME 8.9 fL (7.9-10.8); MONOCYTES % (AUTO) 3.2 %; NEUTROPHILS % (AUTO) 89.9 %; POTASSIUM 4.2 mmol/L (3.5-5.0); RED BLOOD COUNT 3.29 10^6/uL (4.20-5.40); RED CELL DISTRIBUTION WIDTH 20.6 % (12.0-15.0); SODIUM 134 mmol/L (135-145); TOTAL PROTEIN 8.4 g/dL (6.7-8.2)
[2017-10-07 18:51] LABS: PARTIAL THROMBOPLASTIN TIME 38.5 secs (24.9-33.3)
[2017-10-07 18:52] LABS: CREATINE KINASE MB 4.6 ng/mL (0.6-6.3)
[2017-10-07] MEDS ORDERED: PROPOFOL 1000 MG/100 ML 100 ML IV ONE ×2 (18:54→21:42)
[2017-10-07 19:08] LABS: TROPONIN I < 0.04 ng/mL (<0.49)
[2017-10-07] MEDS ORDERED: SUCCINYLCHOLINE 200 MG/10 ML VIAL IVP STA (19:15)
[2017-10-07] MEDS ORDERED: PROPOFOL 1000 MG/100 ML 100 ML IV STA (19:15)
[2017-10-07] MEDS ORDERED: KETAMINE 500 MG/10 ML VIAL IVP STA (19:15)
[2017-10-07] MEDS ORDERED: SODIUM CHLORIDE 0.9% 1,000 ML IV ONE (19:17)
[2017-10-07] MEDS ORDERED: levoFLOXacin 750 MG/150 ML 750 MG/150 ML BAG IV STA (19:18)
[2017-10-07] MEDS ORDERED: VANCOMYCIN INJ 2 GM in SODIUM CHLORIDE 0.9% 500 ML IV STA (19:18)
[2017-10-07] MEDS ORDERED: LACTATED RINGERS 1,000 ML IV STA (19:18)
[2017-10-07] MEDS ORDERED: ELECTROLYTE-A SOLUTION 2,000 ML IV ONE ×2 (19:18→19:28)
[2017-10-07] MEDS ORDERED: PIPERACILLIN/TAZOBACTAM 4.5 GM in SODIUM CHLORIDE 0.9% MINIBAG 100 ML IV STA (19:18)
[2017-10-07 19:26] LABS: BAND NEUTROPHILS % (MANUAL) 39 %; EOSINOPHILS % (MANUAL) 1 %; LYMPHOCYTES % (MANUAL) 6 %; NEUTROPHILS % (MANUAL) 49 %; TOTAL CELLS COUNTED 100
[2017-10-07 19:30] LABS: PLATELET ESTIMATE, MANUAL NORMAL (130-450,000) (NORMAL); PLATELET MORPHOLOGY 1+ GIANT PLATELETS (NORMAL)
[2017-10-07 19:31] LABS: NP AUTO DIFFERENTIAL? YES; NP MAN DIFFERENTIAL? NO
[2017-10-07 19:31] LABS: ABG ANALYSIS TIME 1928; ABG BASE EXCESS -12.8 mmol/L (-2.0-3.0); ABG HCO3 16.8 mmol/L (22.0-26.0); ABG PCO2 55 mmHg (34-45); ABG PO2 66 mmHg (80-100); ABG TCO2 18.4 MMOL/L (21.0-29.0)
[2017-10-07 19:32] LABS: ABG O2 DEVICE VENTILATOR; ABG SITE OF DRAW RIGHT RADIAL
[2017-10-07 19:33] LABS: ABG MODE OF VENTILATION SIMV; ABG PEAK END EXPIRATORY PRESSU 12 cmH2O; ABG PRESSURE SUPPORT VENT 10 cmH2O; ABG RESPIRATORY RATE 20 b/min
[2017-10-07 19:36] LABS: ABG OXYGEN SATURATION 87 % (94-98)
--- NOTE | 2017-10-07 20:05 | XRAY Preliminary Report ---
Exam: XR CHEST 1 VIEW IMPRESSION: 1. Multifocal consolidation in the right lung. 2. Right internal jugular approach catheter either in the IVC or RV. Results were discussed with Dr. Carreon at 8 PM on 10/07/2017. [facility] SITE ID: [id number]
--- NOTE | 2017-10-07 20:06 | XRAY Preliminary Report ---
Exam: XR CHEST 1 VIEW IMPRESSION: 1. Right internal jugular catheter with tip now at the cavoatrial junction. 2. Consolidation in the right lung. [facility] SITE ID: [id number]
--- NOTE | 2017-10-07 20:07 | XRAY Report ---
EXAM: CHEST RADIOGRAPHY EXAM DATE: 10/07/2017 07:39 PM. CLINICAL HISTORY: Resp failure. COMPARISON: CT 08/29/2017. TECHNIQUE: 1 view. FINDINGS: Lungs/Pleura: Dense consolidation in the right midlung zone and patchy opacity at the right lung base . The left lung is grossly clear. Mediastinum: Within exam limitations, the cardiomediastinal contour is normal. Other: Endotracheal tube with tip midway between the thoracic inlet and stephan. Right internal jugula r approach catheter with tip likely either in the IVC or RV. IMPRESSION: 1. Multifocal consolidation in the right lung. 2. Right internal jugular approach catheter either in the IVC or RV. Results were discussed with Dr. Carreon at 8 PM on 10/07/2017. [facility] The above findings were discussed with Lauri by Dr. Beatriz Galan at 20:03 hrs on 10/07/17. Referring Provider Line: [phone] SITE ID: [id number]
--- NOTE | 2017-10-07 20:09 | XRAY Report ---
EXAM: CHEST RADIOGRAPHY EXAM DATE: 10/07/2017 07:41 PM. CLINICAL HISTORY: Rpt after central line pulled back. COMPARISON: Prior same day exam. TECHNIQUE: 1 view. FINDINGS: Lungs/Pleura: Persistent opacities in the right mid and lower lung zones. Mediastinum: Stable cardiomediastinal silhouette. Other: Right internal jugular catheter has been pulled back; its tip now likely at the cavoatrial ole ction. Endotracheal tube is midway between thoracic inlet and stephan. IMPRESSION: 1. Right internal jugular catheter with tip now at the cavoatrial junction. 2. Consolidation in the right lung. [facility] Referring Provider Line: [phone] SITE ID: [id number]
[2017-10-07] MEDS ORDERED: methylPREDNISolone SUCCINATE 125 MG/2 ML VIAL IVP STA (20:31)
[2017-10-07] MEDS ORDERED: VASOPRESSIN 20 UNIT in DEXTROSE 5% 99 ML IVP ONE (20:31)
[2017-10-07] MEDS ORDERED: methylPREDNISolone SUCCINATE 125 MG/2 ML VIAL ONE (20:44)
[2017-10-07] MEDS ORDERED: VECURONIUM 10 MG VIAL IVP STA (20:50)
[2017-10-07 20:54] LABS: PH,URINE 5.5 PH (5.0-7.5)
[2017-10-07] MEDS ORDERED: VECURONIUM 10 MG VIAL ONE (20:57)
[2017-10-07 20:58] LABS: HCG UR QUAL NEGATIVE; UA w/ MICROSCOPIC CHARGE YES
[2017-10-07 21:01] LABS: BILIRUBIN,URINE SMALL (NEGATIVE)
[2017-10-07 21:04] VITALS: BP 109/65
[2017-10-07 21:05] LABS: UR CULTURE IF IND NOT INDICATED
[2017-10-07] MEDS ORDERED: levoFLOXacin 750 MG/150 ML 750 MG/150 ML BAG IV ONE (21:09)
[2017-10-07] MEDS ORDERED: VANCOMYCIN 1 GM VIAL ONE (21:15)
[2017-10-07 21:30] LABS: VBG BASE EXCESS -14.7 mmol/L (-2 - +2); VBG OXYGEN SATURATION 78.8 % (60-80); VBG PH 6.963 (7.31-7.41); VBG TOTAL CO2 20.2 mmol/L (24-29)
== END 2017-10-07 22:31 | disposition short-term general hospital (02) ==
LOC: EDUNIT# → ED 18:15
DX: J96.21 Acute and chronic respiratory failure with hypoxia (principal); J18.9 Pneumonia, unspecified organism; A41.9 Sepsis, unspecified organism; R65.21 Severe sepsis with septic shock; K70.30 Alcoholic cirrhosis of liver without ascites; E66.01 Morbid (severe) obesity due to excess calories; Z87.19 Personal history of other diseases of the digestive system; F17.200 Nicotine dependence, unspecified, uncomplicated
CPT/HCPCS: 31500; 36415; 36556; 36600; 51702; 71010; 80053; 80306; 80320; 81001; 81025; 82140; 82550; 82553; 82803; 83605; 83690; 83735; 83880; 84484; 85025; 85610; 85730; 87040; 87077; 87181; 87275; 87276; 93005; 96361; 96365; 96367; 96368; 96375; 99291; 99292; J3370; J7120; 81003; 86850; 86900; 86901; 87086; 99285